=== PATIENT | female | born 1990 | race Caucasian/White ===

== ENCOUNTER 2021-11-04 06:18 | Day surgery (SDC) | payer BC ==
[2021-10-28 11:04] LABS: BASOPHILS % (AUTO) 0.6 % (0-1); EOSINOPHILS # (AUTO) 0.1 X10'3 (0-0.9); EOSINOPHILS % (AUTO) 2.8 % (0-6); LYMPHOCYTES # (AUTO) 1.6 X10'3 (1.1-4.8); LYMPHOCYTES % (AUTO) 30.8 % (21-51); MEAN CORPUSCULAR HEMOGLOBIN 30.7 PG (27.0-31.0); MEAN CORPUSCULAR HGB CONC 34.1 g/dL (33.0-36.5); MEAN CORPUSCULAR VOLUME 89.8 FL (78-98); MEAN PLATELET VOLUME 8.4 FL (7.4-10.4); MONOCYTES # (AUTO) 0.3 X10'3 (0-0.9); MONOCYTES % (AUTO) 6.5 % (2-12); NEUTROPHILS # (AUTO) 3.1 X10'3 (1.8-7.7); NEUTROPHILS % (AUTO) 59.3 % (42-75); PRE OP HEMATOCRIT 40.7 % (35.0-45.0); PRE OP HEMOGLOBIN 13.9 g/dL (12.0-16.0); PRE OP PLATELET COUNT 234 X10'3 (140-440); RED BLOOD COUNT 4.54 X10'6 (4.20-5.60); RED CELL DISTRIBUTION WIDTH 12.9 % (11.5-14.5)
[2021-10-28 11:19] LABS: ALBUMIN 4.1 G/DL (3.4-5.0); ALBUMIN/GLOBULIN RATIO 1.4 (1.1-1.5); ALKALINE PHOSPHATASE 70 IU/L (46-116); BLOOD UREA NITROGEN 15 MG/DL (7-18); BUN/CREATININE RATIO 18.3 (6.6-38.0); CALCIUM 9.2 MG/DL (8.5-10.1); CHLORIDE 106 MMOL/L (99-107); CREATININE 0.82 MG/DL (0.40-0.90); PRE OP ALT 33 U/L (30-65); PRE OP ANION GAP 9 (8-16); PRE OP AST 17 U/L (10-37); PRE OP BILIRUB, TOTAL 0.4 MG/DL (0.0-1.0); PRE OP GLUCOSE 88 MG/DL (70-104); PRE OP POTASSIUM 4.2 MMOL/L (3.4-5.1); PRE OP SODIUM 141 MMOL/L (135-145); TOTAL CARBON DIOXIDE 26.4 MMOL/L (24-32); eGFR 82 ML/MIN
[2021-10-28 11:21] LABS: HCG SERUM QL NEGATIVE
[~2021-11-04] VITALS: Ht 188 cm; Wt 102.1 kg
[2021-11-04] VITALS (9 sets, daily range): BP systolic 104–124; BP diastolic 45–74
[~2021-11-04 06:18] MED LIST: ESCI20TA39 PO; LORA-268; PREN1TAB75 PO; ceFAZolin inj. 2,000 MG in dextrose 5%-water 100 ML IV ONE; famotidine 20mg tablet PO ONE; ringers solution, lacted 1,000 ML IV SCH
[2021-11-04] MEDS ORDERED: BUPIVAcaine/PF 2.5 mg/ml (0.25%) 30ml vial ONE (08:25)
[2021-11-04] MEDS ORDERED: epiNEPHrine 1 mg/ml inj ONE (08:25)
[2021-11-04] MEDS ORDERED: fentaNYL/PF 50MCG/1 ML 2ML syringe ONE (08:29)
[2021-11-04] MEDS ORDERED: midazolam 1 mg/ML 2ml injection ONE (08:29)
[2021-11-04] MEDS ORDERED: LIDOcaine 2% (20mg/ml) 5ml vial ONE (08:42)
[2021-11-04] MEDS ORDERED: propofol inj 20 ML IV ONE (08:42)
[2021-11-04] MEDS ORDERED: rocuronium 10mg/ml inj IV ONE (08:43)
[2021-11-04] MEDS ORDERED: ondansetron/PF 4mg/2ml inj ONE (08:45)
[2021-11-04] MEDS ORDERED: MIDAZolam 1 MG/ML 5ML VIAL ONE (09:14)
--- NOTE | 2021-11-04 09:19 | NUR ---
Received from OR via [facility] , accompanied by Anesthesiologist DR PHELPS and report given by Anesthesiolgist. PT PRESNTS WITH 20G RIGHT WRIST, ABD DRESSING CDI, VSS. Addendum: 11/04/21 at 0929 by Gricelda Simmons RN, RN Amended: Links added.
[2021-11-04] MEDS ORDERED: morphine 2 MG/ML inj. syringe IV PRN (09:30)
[2021-11-04] MEDS ORDERED: ringers solution, lacted 1,000 ML IV SCH (09:30)
[2021-11-04] MEDS ORDERED: fentaNYL/PF 50MCG/1 ML 2ML syringe IV PRN ×2 (09:30)
[2021-11-04] MEDS ORDERED: morphine 4 MG/ML inj SYRINge IV PRN (09:30)
[2021-11-04] MEDS ORDERED: hydrALAZINE 20mg/ml inj. IV PRN (09:30)
[2021-11-04] MEDS ORDERED: labetalol 20mg/4ml (5mg/ml) syringe IV PRN (09:30)
[2021-11-04] MEDS ORDERED: ondansetron/PF 4mg/2ml inj IV PRN (09:30)
--- NOTE | 2021-11-04 10:39 | NUR ---
PATIENT DISCHARGED FROM PACU IN STABLE CONDITION AFTER WRITTEN AND VERBAL DISCHARGE INSTRUCTIONS GIVEN. PATIENT GAVE VERBAL UNDERSTANDING OF INSTRUCTIONS GIVEN. PATIENT LEFT FACILITY VIA WHEELCHAIR WITH RN. Addendum: 11/04/21 at 1052 by Gricelda Simmons RN RN Amended: Links added.
== END 2021-11-04 10:39 | disposition home or self-care (01) ==
LOC: PAS 06:18
PROVIDERS: ATTEND Obstetrics & Gynecology
DX: Z30.2 Encounter for sterilization (principal); Z79.899 Other long term (current) drug therapy; Z98.890 Other specified postprocedural states; Z87.891 Personal history of nicotine dependence; F41.9 Anxiety disorder, unspecified
CPT/HCPCS: 36415; 58670; 80053; 82948; 84703; 85025; 87811; J0171; J0690; J2250; J2405; J2704; J3010; J3490; J7060; J7120; Z7506; Z7512; A4618; A7000